=== PATIENT | male | born 1960 | race Two or more races ===

== ENCOUNTER 2022-09-06 12:56 | Inpatient (IN) | payer OTHER ==
[~2022-09-06] VITALS: Ht 182.9 cm; Wt 123.8 kg
--- NOTE | 2022-09-06 13:09 | NUR ---
BIBRA60 FOUND UNRESPONSIVE ON SEEN AT [facility]. BG ON SCENE WAS 51, O2 SAT AT 81% ROOM AIR. D10 GIVEN AND NRB APPLIED AT 15 LITERS. BG 260 AND O2 SAT 98% ON ARRIVAL. PT PLACED IN BED AND CONNECTED TO MONITOR. AWAITING MD ORDERS.
--- NOTE | 2022-09-06 13:10 | NUR ---
ESTABLISHED IV 18G LEFT WRIST. BLOOD DRAWN AND SENT TO LAB
--- NOTE | 2022-09-06 13:10 | NUR ---
TECH AT BEDSIDE FOR EKG
--- NOTE | 2022-09-06 13:29 | NUR ---
PHLEB AT BEDSIDE FOR BLOOD DRAW
[2022-09-06 13:41] LABS: BASOPHILS # (AUTO) 0.1 K/uL (0.0-0.2); BASOPHILS % (AUTO) 0.9 % (0.0-2.0); EOSINOPHILS % (AUTO) 2.2 % (0.0-6.0); HEMATOCRIT 28 % (39-51); LYMPHOCYTES # (AUTO) 1.6 K/uL (0.8-4.8); LYMPHOCYTES % (AUTO) 13.5 % (20.0-44.0); MEAN CORPUSCULAR HGB CONC 32 g/dl (31.0-36.0); MEAN CORPUSCULAR VOLUME 87 fL (80-96); MONOCYTES % (AUTO) 7.9 % (2.0-12.0); NEUTROPHILS # (AUTO) 9.2 K/uL (1.8-8.9); NEUTROPHILS % (AUTO) 75.5 % (43.0-81.0); PLATELET COUNT (AUTO) 421 K/uL (150-450); RED BLOOD CELL COUNT(AUTO) 3.26 MIL/uL (4.5-6.0); WHITE BLOOD COUNT (AUTO) 12.2 K/uL (4.3-11.0)
[2022-09-06 13:51] LABS: ALBUMIN 1.8 g/dL (3.4-5.0); CALCIUM, SERUM 8.8 mg/dL (8.5-10.1); CARBON DIOXIDE 23 mmol/L (21-32); CHLORIDE 105 mmol/L (98-107); CREATININE 1.5 mg/dL (0.6-1.3); GLUCOSE 87 mg/dL (74-106); POTASSIUM 4.5 mmol/L (3.5-5.1); SODIUM SERUM 137 mmol/L (136-145); UREA NITROGEN, BLOOD 51 mg/dL (7-18)
[2022-09-06 14:05] LABS: ALANINE AMINOTRANSFERASE 22 U/L (12-78); ALKALINE PHOSPHATASE 66 U/L (46-116); ASPARTATE AMINOTRANSFERASE 11 U/L (15-37); BILIRUBIN,DIRECT 0.1 mg/dL (0.0-0.2); BILIRUBIN,TOTAL 0.2 mg/dL (0.2-1.0); TOTAL PROTEIN, SERUM 7.7 g/dL (6.4-8.2)
--- NOTE | 2022-09-06 14:12 | NUR ---
DR MEJIA AT BEDSIDE FOR EVAL
--- NOTE | 2022-09-06 15:32 | NUR ---
COVID SWAB COLLECTED AND SENT TO LAB
[2022-09-06] MEDS ORDERED: INSU100V39 SQ ×2 (16:11)
[2022-09-06] MEDS ORDERED: LAMO25TA10 PO (16:11)
[2022-09-06] MEDS ORDERED: MULT-188 PO (16:11)
[2022-09-06] MEDS ORDERED: POLY17PO4 PO (16:11)
[2022-09-06] MEDS ORDERED: AMLO5TAB4 PO (16:11)
[2022-09-06] MEDS ORDERED: CARV25TA PO (16:11)
[2022-09-06] MEDS ORDERED: SERT100T PO (16:11)
[2022-09-06] MEDS ORDERED: ACET325T53 PO (16:11)
[2022-09-06] MEDS ORDERED: INSU100V7 SQ (16:11)
[2022-09-06] MEDS ORDERED: GABA-532 PO (16:11)
[2022-09-06] MEDS ORDERED: HYDR-3980 PO (16:11)
[2022-09-06] MEDS ORDERED: FOLI0.8C PO (16:11)
[2022-09-06] MEDS ORDERED: ASPI-1169 PO (16:11)
[2022-09-06] MEDS ORDERED: SENN-261 PO (16:11)
[2022-09-06] MEDS ORDERED: TAMS-12 PO (16:11)
[2022-09-06] MEDS ORDERED: ATOR80TA PO (16:11)
--- NOTE | 2022-09-06 17:56 | NUR ---
GOT BED ASSIGNMENT ROOM 105 ADMITTING INFORMED.
[2022-09-06] MEDS ORDERED: Z GUARD REMEDY 4 OZ OINT TP PRN (18:00)
[2022-09-06] MEDS ORDERED: ONDANSETRON HCL/PF 4 MG/2 ML VIAL IVP PRN (18:00)
[2022-09-06] MEDS ORDERED: ACETAMINOPHEN 325 MG TABLET PO PRN (18:00)
[2022-09-06] MEDS ORDERED: IV D5/0.45 NACL 1,000 ML IV PRN (18:00)
--- NOTE | 2022-09-06 18:09 | NUR ---
REPORT GIVEN TO YEE FAM.
--- NOTE | 2022-09-06 19:05 | NUR ---
RN NOTE RECEIVED PT FROM ER VIA GURNEY ACCOMPANIED BY 2 ER STAFF AND TRANSFERRED TO BED VIA 2-3 PERSON ASSIST. PT IS A/O4 ON ROOM AIR WITH RESPIRATIONS EVEN AND UNLABORED. COMPREHENSIVE PHYSICAL ASSESSMENT AND PATIENT CARE DONE. CALL LIGHT WITHIN REACH, SAFETY MEASURES DONE WILL CONTINUE MONITOR AND ASSESS THROUGHOUT THE SHIFT. WILL CARRY OUT MD ORDERS ACCORDINGLY. WEAVE ROOM SUPERVISOR MADE AWARE.
--- NOTE | 2022-09-06 19:06 | NUR ---
moved patient to assigned inpatient room safely per acls protocol
[2022-09-06 19:10] VITALS: BP 132/67
--- NOTE | 2022-09-06 19:45 | NUR ---
RN NOTE PT COMPLAINED OF SLIGHT SOB, ADMINISTERED 2L OF O2 VIA NC, TOLERATES WELL 02 SAT OF >95%.
[2022-09-06] MEDS: ENOXAPARIN SODIUM 40 MG/0.4 ML DISP.SYRIN SQ SCH (20:23)
[2022-09-06] MEDS: SENNOSIDES 8.6 MG TABLET PO SCH (21:10)
[2022-09-06] MEDS: HYDROCODONE/APAP 10/325MG TABLET PO PRN (21:10)
[2022-09-06] MEDS: ATORVASTATIN 40 MG TABLET PO SCH (21:10)
[2022-09-07] VITALS: BP 122/65
[2022-09-07 04:00] VITALS: BP 126/63
--- NOTE | 2022-09-07 04:00 | NUR ---
RN NOTES PATIENT REMAINED TO BE IN NO SIGNS OF ACUTE RESPIRATORY DISTRESS , SAFE ENVIRONMENT MAINTAINED FOR PT. AM PATIENT CARE ASSISTANCE RENDERED. WILL CONTINUE TO MONITOR AND REASSESS FOR ANY CHANGES THROUGHOUT THE SHIFT.
[2022-09-07] MEDS ORDERED: DEXTROSE 50%-WATER 50 ML DISP.SYRIN IV PRN (05:00)
--- NOTE | 2022-09-07 07:02 | NUR ---
RN CLOSING NOTE: PATIENT REMAINS IN ROOM IN NO SIGNS OF RESPIRATORY DISTRESS, PATIENT STILL ON 2L OF O2 VIA NC;TOLERATING WELL SATURATING @ >95% SP02. SAFETY MEASURES IMPLEMENTED, BED IN LOWEST POSITION, LOCKED, SIDE RAILS UP, CALL LIGHT WITHIN REACH. ALL NEEDS AND ORDERS ADDRESSED DURING THE SHIFT. IV ACCESS MAINTAINED INTACT, SECURED AND FLUSHING WELL. IV FLUIDS STILL RUNNING PER ORDER. ALL DUE MEDS GIVEN ORDERED & SCHEDULED ; PATIENT TOLERATED WELL. PATIENT KEPT CLEAN AND COMFORTABLE WITHIN THE SHIFT. PATIENT ENDORSED TO INCOMING SHIFT RN WITH STABLE VITAL SIGN AND FOR CONTINUITY OF CARE.
[2022-09-07] MEDS: BLOOD SUGAR DIAGNOSTIC 1 EACH STRIP IN SCH ×4 (07:13→21:46)
[2022-09-07] MEDS: INSULIN REGULAR, HUMAN 100 UNIT/ML 3 ML VIAL SQ PRN ×4 (07:26→22:04)
[2022-09-07 08:00] VITALS: BP 140/59
[2022-09-07] MEDS: FOLIC ACID 1 MG TABLET PO SCH (08:15)
[2022-09-07] MEDS: SERTRALINE HCL 50 MG TABLET PO SCH (08:15)
[2022-09-07] MEDS: ASPIRIN 81 MG TAB.CHEW PO SCH (08:15)
[2022-09-07] MEDS: MULTIVIT W/MINERALS 1 TAB TABLET PO SCH (08:15)
[2022-09-07] MEDS: LamoTRIgine 25 MG TABLET PO SCH ×2 (08:16→16:38)
[2022-09-07] MEDS: TAMSULOSIN 0.4 MG CAP.SR.24H PO SCH (08:16)
[2022-09-07 08:17] LABS: BASOPHILS # (AUTO) 0.1 K/uL (0.0-0.2); BASOPHILS % (AUTO) 0.6 % (0.0-2.0); EOSINOPHILS % (AUTO) 0.6 % (0.0-6.0); HEMATOCRIT 25 % (39-51); LYMPHOCYTES # (AUTO) 2.2 K/uL (0.8-4.8); LYMPHOCYTES % (AUTO) 14.7 % (20.0-44.0); MEAN CORPUSCULAR HGB CONC 32 g/dl (31.0-36.0); MEAN CORPUSCULAR VOLUME 88 fL (80-96); MONOCYTES # (AUTO) 1.1 K/uL (0.1-1.30); MONOCYTES % (AUTO) 6.9 % (2.0-12.0); NEUTROPHILS # (AUTO) 11.8 K/uL (1.8-8.9); NEUTROPHILS % (AUTO) 77.2 % (43.0-81.0); PLATELET COUNT (AUTO) 396 K/uL (150-450); RED BLOOD CELL COUNT(AUTO) 2.85 MIL/uL (4.5-6.0); WHITE BLOOD COUNT (AUTO) 15.3 K/uL (4.3-11.0)
[2022-09-07] MEDS: AMLODIPINE BESYLATE 5 MG TABLET PO SCH (08:17)
[2022-09-07] MEDS: CARVEDILOL 12.5 MG TABLET PO SCH ×2 (08:18→16:39)
[2022-09-07] MEDS: GABAPENTIN 100 MG CAPSULE PO SCH ×3 (08:19→16:37)
[2022-09-07 08:35] LABS: ALBUMIN 1.6 g/dL (3.4-5.0); BILIRUBIN,TOTAL 0.3 mg/dL (0.2-1.0); CALCIUM, SERUM 8.1 mg/dL (8.5-10.1); CREATININE 1.6 mg/dL (0.6-1.3); PHOSPHORUS 3.8 mg/dL (2.5-4.9); POTASSIUM 4.4 mmol/L (3.5-5.1); TOTAL PROTEIN, SERUM 6.8 g/dL (6.4-8.2)
--- NOTE | 2022-09-07 08:57 | NUR ---
PATIENT IV'S NOT PATENT,REMOVED TRIED 3X PERIPHERAL UNSUCCESSFUL ,OBTAIN MIDLINE,BS 402 MD AWARE,HAD INSULIN CPVERAGE GIVEN ORDERED.
[2022-09-07] MEDS: LEVOFLOXACIN 500 MG /D5W 100ML 500 MG in PREMIX 1 EA IV SCH (10:04)
[2022-09-07] MEDS: HYDROCODONE/APAP 10/325MG TABLET PO PRN ×2 (10:24→22:24)
--- NOTE | 2022-09-07 10:25 | NUR ---
PATIENT C/O OF RIGHT FOOT PAIN 8/10, NORCO 10MG GIVEN PO. REASSESS PAIN AFTER AN HOUR.
--- NOTE | 2022-09-07 11:25 | NUR ---
PATIENT HAS NO C/O PAIN AFTER NORCO WAS GIVEN.
[2022-09-07 12:00] VITALS: BP 116/60
--- NOTE | 2022-09-07 15:31 | NUR ---
URINE LAB SAMPLE COLLECTED, INFORMED LAB DEPARTMENT.
[2022-09-07 16:00] VITALS: BP 121/56
--- NOTE | 2022-09-07 16:30 | NUR ---
DOUG FROM [facility] CALLED THAT PATIENT IS POSITIVE OF MRSA.
[2022-09-07] MEDS: ENOXAPARIN SODIUM 40 MG/0.4 ML DISP.SYRIN SQ SCH (17:05)
--- NOTE | 2022-09-07 18:27 | NUR ---
PATIENT IS AWAKE, ALERT, ORIENTEDX3, NO COMPLAINT OF PAIN, NO SIGNS OF IN DISTRESS, VITAL SIGNS ARE STABLE, UNLABORED BREATHING ON ROOM AIR, LEFT WRIST PERIPHERAL IV LINE ,SALINE LOCK, CONDOM CATHETER IN PLACE AND DRAINING WELL, SAFETY MEASURES IN PLACE, BED IN LOW POSITION, SIDE RAILS UP, CALL LIGHT WITHIN REACH.
[2022-09-07 18:46] LABS: CREATININE, URINE 53.9 MG/DL (30.0-125.0)
[2022-09-07 18:55] LABS: BILIRUBIN,URINE NEGATIVE (NEGATIVE); COLOR,URINE YELLOW (YELLOW); LEUKOCYTE ESTERASE ,URINE NEGATIVE (NEGATIVE); NITRITE, URINE NEGATIVE (NEGATIVE); PROTEIN,URINE 3+ mg/dl (NEGATIVE); UGLUCOSE 2+ mg/dL (NEGATIVE); UROBILINOGEN,URINE 0.2 EU/dL (0.2)
--- NOTE | 2022-09-07 19:00 | NUR ---
ICING AND GLAZE MAKER OPENING NOTE PATIENT IS LYING IN BED WATCHING TV. HE IS ALERT AND ORIENTED. AO X 4. HE IS ON 2 LPM OXYGEN VIA NC, TOLERATED WELL. NO S/S OF SOB OR DISTRESS. IV ACCESS IS AT HIS RIGHT UA, ML, #18G. SL. FLUSHED WITH 10 CC ML OF NS. IV IS PATENT AND INTACT. PATIENT DENIES OF HAVING PAIN AT THIS MOMENT. 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 SAFETY MEASURES ARE IN PLACE: BED IN LOWEST AND LOCKED POSITION; SIDE RAILS UP X 2; CALL LIGHT AND TABLE ARE WITHIN REACH. WILL CONTINUE MONITORING THE PATIENT AND PROVIDE THE CARE PATIENT NEEDS.
[2022-09-07 19:16] LABS: WBC,URINE 0-2 /HPF (0-3)
[2022-09-07 19:17] LABS: BACTERIA,URINE 1+ /HPF (None Seen); MUCUS,URINE Few /LPF (None Seen)
[2022-09-07 20:00] VITALS: BP 129/67
[2022-09-07] MEDS: IV NS 0.9% 1,000 ML IV PRN (20:36)
[2022-09-07] MEDS: MUPIROCIN OINT 2% 22 GM TUBE NS SCH (21:41)
[2022-09-07] MEDS: SENNOSIDES 8.6 MG TABLET PO SCH (21:42)
[2022-09-07] MEDS: ATORVASTATIN 40 MG TABLET PO SCH (21:42)
[2022-09-07] MEDS ORDERED: INSULIN GLARGINE, 100 UNIT/ML CARTRIDGE SQ SCH (22:00)
--- NOTE | 2022-09-07 22:25 | NUR ---
REFRACTORY PRODUCTS SUPERVISOR NOTE PATIENT STATES HE IS HAVING PAIN ON HIS LOWER LEGS AND FOOT. 02/10. PRN MEDICATION NORCO WAS ADMINISTERED TO THE PATIENT PER MD ORDER.
[2022-09-08 00:25] VITALS: BP 129/82
[2022-09-08 04:00] VITALS: BP 136/71
[2022-09-08] MEDS: BLOOD SUGAR DIAGNOSTIC 1 EACH STRIP IN SCH ×4 (06:30→21:42)
[2022-09-08] MEDS: INSULIN REGULAR, HUMAN 100 UNIT/ML 3 ML VIAL SQ PRN ×4 (06:34→21:44)
--- NOTE | 2022-09-08 07:20 | NUR ---
MECHANICAL ENGINEERING ADVISOR CLOSING NOTE PATIENT IS SLEEPING IN BED; EASILY BEING AROUSED. HE IS ALERT AND ORIENTED. AO X 4. HE IS ON 2 LPM OXYGEN VIA NC, TOLERATED WELL. NO S/S OF SOB OR DISTRESS. IV ACCESS IS AT HIS RIGHT UA, ML, and #18G, RUNNING NS @70 ML/HR. IV IS PATENT AND INTACT. PATIENT DENIES OF HAVING PAIN AT THIS MOMENT. 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 SAFETY MEASURES ARE IN PLACE: BED IN LOWEST AND LOCKED POSITION; SIDE RAILS UP X 2; CALL LIGHT AND TABLE ARE WITHIN REACH. WILL ENDORSE NEXT SHIFT NURSE FOR CONTINUING PATIENT CARE.
--- NOTE | 2022-09-08 07:39 | NUR ---
RN Opening Note Patient sleeping but easily aroused, AOx4, able to express his own concerns. No signs of distress or discomfort. Will continue to monitor throughout shift. All safety precautions taken, call light and table within reach, bed at lowest position.
[2022-09-08 08:00] VITALS: BP 132/75
[2022-09-08] MEDS: MULTIVIT W/MINERALS 1 TAB TABLET PO SCH (08:08)
[2022-09-08] MEDS: CARVEDILOL 12.5 MG TABLET PO SCH ×2 (08:08→16:46)
[2022-09-08] MEDS: SERTRALINE HCL 50 MG TABLET PO SCH (08:08)
[2022-09-08] MEDS: FOLIC ACID 1 MG TABLET PO SCH (08:09)
[2022-09-08] MEDS: LamoTRIgine 25 MG TABLET PO SCH ×2 (08:09→16:44)
[2022-09-08] MEDS: GABAPENTIN 100 MG CAPSULE PO SCH ×3 (08:09→16:44)
[2022-09-08] MEDS: TAMSULOSIN 0.4 MG CAP.SR.24H PO SCH (08:09)
[2022-09-08] MEDS: ASPIRIN 81 MG TAB.CHEW PO SCH (08:09)
[2022-09-08] MEDS: AMLODIPINE BESYLATE 5 MG TABLET PO SCH (08:09)
[2022-09-08 09:31] LABS: BASOPHILS % (AUTO) 0.4 % (0.0-2.0); EOSINOPHILS % (AUTO) 3.6 % (0.0-6.0); HEMATOCRIT 23 % (39-51); HEMOGLOBIN 7.3 g/dL (13.5-17.5); LYMPHOCYTES # (AUTO) 1.9 K/uL (0.8-4.8); LYMPHOCYTES % (AUTO) 16.6 % (20.0-44.0); MEAN CORPUSCULAR HGB CONC 32 g/dl (31.0-36.0); MEAN CORPUSCULAR VOLUME 88 fL (80-96); MONOCYTES # (AUTO) 1.1 K/uL (0.1-1.30); MONOCYTES % (AUTO) 9.6 % (2.0-12.0); NEUTROPHILS # (AUTO) 7.9 K/uL (1.8-8.9); NEUTROPHILS % (AUTO) 69.8 % (43.0-81.0); PLATELET COUNT (AUTO) 341 K/uL (150-450); RED BLOOD CELL COUNT(AUTO) 2.66 MIL/uL (4.5-6.0); WHITE BLOOD COUNT (AUTO) 11.3 K/uL (4.3-11.0)
[2022-09-08] MEDS: MUPIROCIN OINT 2% 22 GM TUBE NS SCH ×2 (09:35→21:25)
[2022-09-08 09:48] LABS: CREATININE 1.8 mg/dL (0.6-1.3); POTASSIUM 4.2 mmol/L (3.5-5.1)
[2022-09-08] MEDS: LEVOFLOXACIN 500 MG /D5W 100ML 500 MG in PREMIX 1 EA IV SCH (10:03)
[2022-09-08] MEDS: IV NS 0.9% 1,000 ML IV PRN (10:04)
[2022-09-08] MEDS: CLINDAMYCIN 600 MG in IV D5W 50 ML IV SCH ×2 (11:45→21:24)
[2022-09-08 12:00] VITALS: BP 130/70
[2022-09-08 16:00] VITALS: BP 129/68
[2022-09-08] MEDS: HYDROCODONE/APAP 10/325MG TABLET PO PRN ×2 (16:57→22:48)
--- NOTE | 2022-09-08 17:15 | NUR ---
Hold Lovenox Per MD, hold Lovenox. Hemoglobin 7.3
[2022-09-08] MEDS: ENOXAPARIN SODIUM 40 MG/0.4 ML DISP.SYRIN SQ SCH (17:38)
--- NOTE | 2022-09-08 18:20 | NUR ---
RN Closing Note PAtient AOx4 able to express his concerns. Patient states no discomfort, no signs of distress noted. Patient safe throughout shift. cement worker consult requested, pt states he has not been able to communicate with family. All safety precautions taken, call light and table within reach, bed at lowest position.
[2022-09-08 20:00] VITALS: BP 122/70
--- NOTE | 2022-09-08 20:00 | NUR ---
SPORTS MARKETING COORDINATOR NOTE PT IN BED A/O X 4 NO SOB, NO DISTRESS OR DISCOMFORT NOTED. DENIES PAIN AT THIS TIME. ON O2 2L VIA N/C O2 SAT 98%. ON TELE SR HR 85. PT IS USING CONDOM CATH DRAINING YELLOWISH COLOR URINE. BOB WITH MIDLAINE INFUSING NS @ 70 ML/HR, NO S/S OF INFILTRATION NOTED. ALL NEEDS ATTENDED. SIDE RAILS UP X 2 AND CALL LIGHT WITHIN REACH. VSS. CONTINUE TO MONITOR HIM.
[2022-09-08] MEDS: ATORVASTATIN 40 MG TABLET PO SCH (21:24)
[2022-09-08] MEDS: SENNOSIDES 8.6 MG TABLET PO SCH (21:24)
[2022-09-08] MEDS: DOXYCYCLINE HYCLATE (100 MG) 100 MG TABLET PO SCH (21:42)
[2022-09-08] MEDS: INSULIN GLARGINE, 100 UNIT/ML CARTRIDGE SQ SCH (21:45)
[2022-09-09] VITALS: BP 131/68
[2022-09-09] MEDS: IV NS 0.9% 1,000 ML IV PRN (03:27)
[2022-09-09 04:00] VITALS: BP 128/60
[2022-09-09] MEDS: CLINDAMYCIN 600 MG in IV D5W 50 ML IV SCH ×3 (05:41→21:57)
--- NOTE | 2022-09-09 07:30 | NUR ---
PT RECEIVED RESTING COMFORTABLY IN BED. NO S/S OR C/O PAIN OR DISTRESS NOTED. SIDE RAILS UP X2, CALL LIGHT LEFT WITHIN REACH. WILL CONTINUE PLAN OF CARE.
[2022-09-09 08:00] VITALS: BP 123/73
[2022-09-09] MEDS: ASPIRIN 81 MG TAB.CHEW PO SCH (08:06)
[2022-09-09] MEDS: GABAPENTIN 100 MG CAPSULE PO SCH ×3 (08:06→17:55)
[2022-09-09] MEDS: TAMSULOSIN 0.4 MG CAP.SR.24H PO SCH (08:06)
[2022-09-09] MEDS: LamoTRIgine 25 MG TABLET PO SCH ×2 (08:06→17:54)
[2022-09-09] MEDS: MULTIVIT W/MINERALS 1 TAB TABLET PO SCH (08:06)
[2022-09-09] MEDS: SERTRALINE HCL 50 MG TABLET PO SCH (08:07)
[2022-09-09] MEDS: DOXYCYCLINE HYCLATE (100 MG) 100 MG TABLET PO SCH (08:07)
[2022-09-09] MEDS: FOLIC ACID 1 MG TABLET PO SCH (08:07)
[2022-09-09] MEDS: CARVEDILOL 12.5 MG TABLET PO SCH ×2 (08:07→17:55)
[2022-09-09] MEDS: AMLODIPINE BESYLATE 5 MG TABLET PO SCH (08:08)
[2022-09-09] MEDS: INSULIN REGULAR, HUMAN 100 UNIT/ML 3 ML VIAL SQ PRN ×4 (08:09→22:55)
[2022-09-09] MEDS: BLOOD SUGAR DIAGNOSTIC 1 EACH STRIP IN SCH ×4 (08:19→21:58)
[2022-09-09] MEDS: MUPIROCIN OINT 2% 22 GM TUBE NS SCH ×2 (08:19→21:58)
[2022-09-09] MEDS: HYDROCODONE/APAP 10/325MG TABLET PO PRN ×2 (08:29→16:46)
[2022-09-09] MEDS: LEVOFLOXACIN 500 MG /D5W 100ML 500 MG in PREMIX 1 EA IV SCH (09:32)
[2022-09-09 10:14] LABS: CALCIUM, SERUM 8.1 mg/dL (8.5-10.1); CREATININE 1.8 mg/dL (0.6-1.3); POTASSIUM 4.3 mmol/L (3.5-5.1)
[2022-09-09 10:32] LABS: BASOPHILS % (AUTO) 0.5 % (0.0-2.0); EOSINOPHILS % (AUTO) 4.7 % (0.0-6.0); HEMATOCRIT 23 % (39-51); HEMOGLOBIN 7.4 g/dL (13.5-17.5); LYMPHOCYTES # (AUTO) 1.6 K/uL (0.8-4.8); LYMPHOCYTES % (AUTO) 15.8 % (20.0-44.0); MEAN CORPUSCULAR HGB CONC 32 g/dl (31.0-36.0); MEAN CORPUSCULAR VOLUME 90 fL (80-96); MONOCYTES # (AUTO) 1.1 K/uL (0.1-1.30); MONOCYTES % (AUTO) 11.1 % (2.0-12.0); NEUTROPHILS # (AUTO) 6.9 K/uL (1.8-8.9); NEUTROPHILS % (AUTO) 67.9 % (43.0-81.0); PLATELET COUNT (AUTO) 340 K/uL (150-450); RED BLOOD CELL COUNT(AUTO) 2.52 MIL/uL (4.5-6.0); WHITE BLOOD COUNT (AUTO) 10.1 K/uL (4.3-11.0)
[2022-09-09] MEDS ORDERED: POLYETHYLENE GLYCOL 3350 17 GM POWD.PACK PO PRN (11:00)
[2022-09-09 12:00] VITALS: BP 123/62
[2022-09-09 16:00] VITALS: BP 136/52
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
[2022-09-09 17:51] LABS: BILIRUBIN,URINE NEGATIVE (NEGATIVE); COLOR,URINE YELLOW (YELLOW); LEUKOCYTE ESTERASE ,URINE NEGATIVE (NEGATIVE); NITRITE, URINE NEGATIVE (NEGATIVE); PROTEIN,URINE 2+ mg/dl (NEGATIVE); UGLUCOSE 1+ mg/dL (NEGATIVE); UROBILINOGEN,URINE 0.2 EU/dL (0.2)
[2022-09-09] MEDS: ENOXAPARIN SODIUM 40 MG/0.4 ML DISP.SYRIN SQ SCH (18:00)
[2022-09-09 18:17] LABS: WBC,URINE 0-2 /HPF (0-3)
[2022-09-09 18:18] LABS: BACTERIA,URINE RARE /HPF (None Seen)
--- NOTE | 2022-09-09 18:51 | NUR ---
CHANGE OF SHIFT REPORT PT RESTING COMFORTABLY IN BED. NO S/S OR C/O PAIN OR DISTRESS NOTED. SIDERAILS UP X2, CALL LIGHT LEFT WITHIN REACH. PT KEPT CLEAN, DRY, AND COMFORTABLE. NO SIGNIFICANT CHANGES SINCE PREVIOUS SHIFT. WILL GIVE REPORT TO RONAK FRAIRE.
[2022-09-09 19:29] LABS: CREATININE, URINE 37.1 MG/DL (30.0-125.0); URINE TOTAL PROTEIN 254.9 mg/dL (0-11.9)
--- NOTE | 2022-09-09 19:40 | NUR ---
CEMENTER HAND OPENING NOTE RECEIVED PATIENT IN BED SLEEPING. PT ALERT AND ORIENTED X 4. ON 2 LPM OXYGEN VIA NC. NO S/S OF SOB OR DISTRESS. IV ACCESS TO RIGHT UA, ML, #18G. SL, PATENT AND INTACT. PATIENT DENIES PAIN, AND DISCOMFORT AT THIS MOMENT. ON TELE MONITOR READING SR WITH HR IN 80s. SAFETY MEASURES ARE IN PLACE: BED IN LOWEST AND LOCKED POSITION; SIDE RAILS UP X 2; CALL LIGHT AND TABLE WITHIN REACH. WILL CONTINUE MONITORING THE PATIENT AND PROVIDE THE CARE PATIENT NEEDS.
[2022-09-09 20:00] VITALS: BP 130/66
[2022-09-09] MEDS: ATORVASTATIN 40 MG TABLET PO SCH (21:59)
[2022-09-09] MEDS: SENNOSIDES 8.6 MG TABLET PO SCH (21:59)
[2022-09-09] MEDS: INSULIN GLARGINE, 100 UNIT/ML CARTRIDGE SQ SCH (23:01)
[2022-09-10] VITALS: BP 130/70
[2022-09-10 04:00] VITALS: BP 130/70
[2022-09-10] MEDS: CLINDAMYCIN 600 MG in IV D5W 50 ML IV SCH ×3 (05:52→21:09)
--- NOTE | 2022-09-10 06:55 | NUR ---
STUNTMAN CLOSING NOTE PT RESTING COMFORTABLY IN BED. NO S/S OR C/O PAIN OR DISTRESS NOTED. SAFETY MEASURES IN PLACE: SIDE RAILS UP X2, CALL LIGHT WITHIN REACH, BED IN LOW POSITION. PT KEPT CLEAN, DRY, AND COMFORTABLE. WILL ENDORSE TO AM SHIFT NURSE FOR LUL..
--- NOTE | 2022-09-10 07:49 | NUR ---
AIDS COUNSELOR NOTE PATIENT IN BED ,ALERT ORIENTED , ON 2L NC, NO SOB NOTED AT THIS TIME, ON TELE MONITOR SR HR 78 , RT UPPER ARM MID LINE IN PLACE , ON IVF ORDERED, WITH CONDOM CATH TOLERATED , BED IN LOWEST AND LOCKED POSITION , CALL LIGHT WITHIN REACH , WILL CONT TO MONITOR CLOSELY
[2022-09-10 08:00] VITALS: BP 115/64
[2022-09-10] MEDS: GABAPENTIN 100 MG CAPSULE PO SCH ×3 (08:38→16:24)
[2022-09-10] MEDS: ASPIRIN 81 MG TAB.CHEW PO SCH (08:38)
[2022-09-10] MEDS: AMLODIPINE BESYLATE 5 MG TABLET PO SCH (08:38)
[2022-09-10] MEDS: CARVEDILOL 12.5 MG TABLET PO SCH ×2 (08:39→16:25)
[2022-09-10] MEDS: SERTRALINE HCL 50 MG TABLET PO SCH (08:40)
[2022-09-10] MEDS: LamoTRIgine 25 MG TABLET PO SCH ×2 (08:40→16:25)
[2022-09-10] MEDS: MULTIVIT W/MINERALS 1 TAB TABLET PO SCH (08:41)
[2022-09-10] MEDS: TAMSULOSIN 0.4 MG CAP.SR.24H PO SCH (08:41)
[2022-09-10] MEDS: FOLIC ACID 1 MG TABLET PO SCH (08:41)
[2022-09-10] MEDS: INSULIN REGULAR, HUMAN 100 UNIT/ML 3 ML VIAL SQ PRN ×4 (08:47→21:48)
[2022-09-10] MEDS: BLOOD SUGAR DIAGNOSTIC 1 EACH STRIP IN SCH ×4 (08:48→21:37)
[2022-09-10 08:49] LABS: IRON, SERUM 19 ug/dl (50-175); TOTAL IRON BINDING CAPACITY 134 ug/dl (250-450)
[2022-09-10] MEDS: MUPIROCIN OINT 2% 22 GM TUBE NS SCH ×2 (08:49→21:15)
[2022-09-10 09:05] LABS: FERRITIN 57 ng/mL (8-388)
[2022-09-10] MEDS: LEVOFLOXACIN 500 MG /D5W 100ML 500 MG in PREMIX 1 EA IV SCH (10:13)
[2022-09-10 12:00] VITALS: BP 115/64
--- NOTE | 2022-09-10 12:30 | NUR ---
ms rn note rounds made, all needs attended ,not in distress
--- NOTE | 2022-09-10 14:34 | NUR ---
telecommunication equipment repairer note c\o dry eyes per dr hao Ragsdale ordered artificial eyes drops , order carried ours per dr hao Ragsdale ok to place cpap machine ,called rt Addendum: 09/10/22 at 1442 by RAMIREZ BORDEN RN Notified Doctor Hao Ragsdale hg 7.4 no new order given
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
--- NOTE | 2022-09-10 14:58 | NUR ---
rn note report given to christian noriega
--- NOTE | 2022-09-10 15:00 | NUR ---
RN NOTE RECEIVED REPORT FROM RAMIREZ, WILL CONTINUE THE CARE SINCE NOW FOR THE REST OF THE SHIFT.
[2022-09-10 16:00] VITALS: BP 121/63
[2022-09-10] MEDS: HYDROCODONE/APAP 10/325MG TABLET PO PRN (16:32)
[2022-09-10] MEDS: ENOXAPARIN SODIUM 40 MG/0.4 ML DISP.SYRIN SQ SCH (18:14)
--- NOTE | 2022-09-10 18:58 | NUR ---
RN CLOSING NOTE PATIENT RESTING IN BED. NO S/S OR C/O PAIN OR DISTRESS NOTED. SAFETY MEASURES IN PLACE: SIDE RAILS UP X2, CALL LIGHT WITHIN REACH, BED IN LOW POSITION. CONDOM CATHETER DRAINING YELLOW CLEAR URINE. PT KEPT CLEAN, DRY, AND COMFORTABLE. WILL ENDORSE TO PM SHIFT NURSE FOR LUL..
--- NOTE | 2022-09-10 19:30 | NUR ---
MS RN OPENING NOTE RECEIVED PATIENT IN BED; AWAKE, ALERT AND ORIENTED X 4. ON O2 INHALATION @ 2 LPM VIA NASAL CANNULA; TOLERATING WELL. NOT IN ANY FORM OF RESPIRATORY OR CARDIAC DISTRESS. DENIES ANY PAIN OR DISCOMFORT AT THIS TIME. WITH IV ACCESS ON RIGHT UA MIDLINE 18g; INTACT, PATENT AND SALINE LOCKED. ABLE TO MAKE NEEDS KNOWN. SAFETY MEASURES IMPLEMENTED: CALL LIGHT AND TABLE WITHIN REACH, SIDE RAILS UP X 2, BED IN LOWEST LOCKED POSITION. WILL CONTINUE PLAN OF CARE.
[2022-09-10 20:00] VITALS: BP 121/73
[2022-09-10] MEDS: ATORVASTATIN 40 MG TABLET PO SCH (21:08)
[2022-09-10] MEDS: SENNOSIDES 8.6 MG TABLET PO SCH (21:08)
[2022-09-10] MEDS: POLYVINYL ALCOHOL 15 ML BOTTLE EACHEYE PRN (21:15)
[2022-09-10] MEDS: INSULIN GLARGINE, 100 UNIT/ML CARTRIDGE SQ SCH (21:41)
[2022-09-11 04:00] VITALS: BP 144/74
[2022-09-11] MEDS: CLINDAMYCIN 600 MG in IV D5W 50 ML IV SCH ×3 (04:34→21:20)
[2022-09-11 05:59] VITALS: BP 144/74
[2022-09-11 06:55] LABS: BASOPHILS # (AUTO) 0.1 K/uL (0.0-0.2); BASOPHILS % (AUTO) 0.6 % (0.0-2.0); HEMATOCRIT 23 % (39-51); HEMOGLOBIN 7.5 g/dL (13.5-17.5); LYMPHOCYTES % (AUTO) 24.5 % (20.0-44.0); MEAN CORPUSCULAR HGB CONC 32 g/dl (31.0-36.0); MEAN CORPUSCULAR VOLUME 87 fL (80-96); MONOCYTES # (AUTO) 0.9 K/uL (0.1-1.30); MONOCYTES % (AUTO) 11.6 % (2.0-12.0); NEUTROPHILS # (AUTO) 4.7 K/uL (1.8-8.9); NEUTROPHILS % (AUTO) 58.3 % (43.0-81.0); PLATELET COUNT (AUTO) 377 K/uL (150-450); RED BLOOD CELL COUNT(AUTO) 2.69 MIL/uL (4.5-6.0)
[2022-09-11 07:03] LABS: CALCIUM, SERUM 8.3 mg/dL (8.5-10.1); CREATININE 1.8 mg/dL (0.6-1.3); PHOSPHORUS 4.5 mg/dL (2.5-4.9); POTASSIUM 4.8 mmol/L (3.5-5.1)
--- NOTE | 2022-09-11 07:13 | NUR ---
MS RN CLOSING NOTE PATIENT IN BED; AWAKE, A/O X 4. STILL ON O2 INHALATION @ 2 LPM VIA NASAL CANNULA; TOLERATING WELL. NOT IN ANY FORM OF RESPIRATORY OR CARDIAC DISTRESS. DENIES ANY PAIN OR DISCOMFORT AT THIS TIME. WITH IV ACCESS RIGHT UA, MIDLINE 18G; INTACT, PATENT AND SALINE LOCKED. ALL DUE MEDS GIVEN ORDERED. SAFETY MEASURES MAINTAINED: CALL LIGHT AND TABLE WITHIN REACH, SIDE RAILS UP X 2, BED IN LOWEST LOCKED POSITION. ENDORSED TO MORNING SHIFT FOR LUL.
[2022-09-11] MEDS: BLOOD SUGAR DIAGNOSTIC 1 EACH STRIP IN SCH ×4 (07:47→21:39)
[2022-09-11] MEDS: INSULIN REGULAR, HUMAN 100 UNIT/ML 3 ML VIAL SQ PRN ×4 (07:50→21:42)
[2022-09-11] MEDS: FOLIC ACID 1 MG TABLET PO SCH (08:28)
[2022-09-11] MEDS: CARVEDILOL 12.5 MG TABLET PO SCH ×2 (08:28→16:33)
[2022-09-11] MEDS: AMLODIPINE BESYLATE 5 MG TABLET PO SCH (08:29)
[2022-09-11] MEDS: ASPIRIN 81 MG TAB.CHEW PO SCH (08:29)
[2022-09-11] MEDS: MULTIVIT W/MINERALS 1 TAB TABLET PO SCH (08:29)
[2022-09-11] MEDS: LamoTRIgine 25 MG TABLET PO SCH ×2 (08:29→16:33)
[2022-09-11] MEDS: SERTRALINE HCL 50 MG TABLET PO SCH (08:29)
[2022-09-11] MEDS: TAMSULOSIN 0.4 MG CAP.SR.24H PO SCH (08:30)
[2022-09-11] MEDS: GABAPENTIN 100 MG CAPSULE PO SCH ×3 (08:30→16:33)
[2022-09-11] MEDS: MUPIROCIN OINT 2% 22 GM TUBE NS SCH ×2 (08:30→21:21)
[2022-09-11] MEDS: POLYVINYL ALCOHOL 15 ML BOTTLE EACHEYE PRN (08:35)
--- NOTE | 2022-09-11 08:35 | NUR ---
followup urine culture per lab no order.and they cannot send culture since ua done 2 days ago.
--- NOTE | 2022-09-11 08:37 | NUR ---
urine specimen collected and resend by primary RN per ID order.
--- NOTE | 2022-09-11 08:39 | NUR ---
clarified w/ lab why not done reflex culture per lab it was not triggered . made aware.
[2022-09-11] MEDS: LEVOFLOXACIN 500 MG /D5W 100ML 500 MG in PREMIX 1 EA IV SCH (10:25)
[2022-09-11 12:00] VITALS: BP 140/73
[2022-09-11 12:07] LABS: *ANA ANTI-DNA(DS) AB, QN <1 IU/mL (0-9); *ANA ANTI-JO-1 <0.2 AI (0.0-0.9); *ANA ANTICHROMATIN ANTIBODY <0.2 AI (0.0-0.9); *ANA RNP ANTIBODIES <0.2 AI (0.0-0.9); *ANA SJOGREN'S ANTI-SS-A <0.2 AI (0.0-0.9); *ANA SJOGREN'S ANTI-SS-B <0.2 AI (0.0-0.9); *ANAANTI-SCLERODERMA-70 AB <0.2 AI (0.0-0.9); *ANASMITH AB <0.2 AI (0.0-0.9)
[2022-09-11 14:06] LABS: *SPE A/G RATIO 0.4 (0.7-1.7); *SPE ALPHA-1-GLOBULIN 0.4 g/dL (0.0-0.4); *SPE ALPHA-2-GLOBULIN 1.4 g/dL (0.4-1.0); *SPE BETA GLOBULIN 1.2 g/dL (0.7-1.3); *SPE M-SPIKE Not Observed g/dL (Not Observed)
[2022-09-11] MEDS: HYDROCODONE/APAP 10/325MG TABLET PO PRN ×2 (16:57→23:00)
[2022-09-11] MEDS: ENOXAPARIN SODIUM 40 MG/0.4 ML DISP.SYRIN SQ SCH (17:09)
--- NOTE | 2022-09-11 18:49 | NUR ---
RN CLOSING NOTE PATIENT IN BED AWAKE, A/O X 4. PATIENT ON NC 2 LITTERS BUT REMOVED THE NC AND HE IS SATING FINE 98% ON ROOM AIR. PATIENT SAID WILL PUT IT ON ONCE HE NEEDS IT NOT IN ANY FORM OF RESPIRATORY OR CARDIAC DISTRESS. WITH IV ACCESS RIGHT UA, MIDLINE 18G; INTACT, PATENT AND SALINE LOCKED. ALL DUE MEDS GIVEN ORDERED. SAFETY MEASURES MAINTAINED: CALL LIGHT AND TABLE WITHIN REACH, SIDE RAILS UP X 2, BED IN LOWEST LOCKED POSITION. ENDORSED TO PM NURSE FOR LUL.
--- NOTE | 2022-09-11 19:30 | NUR ---
MS RN OPENING NOTES - RECEIVED PATIENT AWAKE IN BED. A/O X4. BREATHING EVEN AND NON-LABORED ON ROOM AIR. NOT IN APPARENT DISTRESS. DENIES PAIN AT THIS TIME. HAS RIGHT UPPER ARM MIDLINE #18G AND SALINE LOCKED. NO S/S OF INFILTRATION NOTED. HAS CONDOM CATHETER DRAINING CLEAR YELLOW URINE TO BAG BY GRAVITY. SAFETY PRECAUTIONS IN PLACE: BED LOCKED AND IN LOW POSITION, SIDE RAILS UP X2, CALL LIGHT WITHIN REACH. WILL CONTINUE PLAN OF CARE.
[2022-09-11 20:00] VITALS: BP 127/73
[2022-09-11] MEDS: ATORVASTATIN 40 MG TABLET PO SCH (21:44)
[2022-09-11] MEDS: INSULIN GLARGINE, 100 UNIT/ML CARTRIDGE SQ SCH (21:44)
[2022-09-11] MEDS: SENNOSIDES 8.6 MG TABLET PO SCH (21:44)
--- NOTE | 2022-09-11 23:05 | NUR ---
PATIENT REQUESTED FOR PRN NORCO 10-325 SINCE HE HAS CHRONIC BILATERAL LOWER EXTREMITY PAIN 05/13. GIVEN AND TOLERATED WELL.
[2022-09-12 04:00] VITALS: BP 122/67
[2022-09-12] MEDS: CLINDAMYCIN 600 MG in IV D5W 50 ML IV SCH ×3 (04:19→21:03)
[2022-09-12] MEDS: BLOOD SUGAR DIAGNOSTIC 1 EACH STRIP IN SCH ×4 (06:53→21:10)
[2022-09-12] MEDS: INSULIN REGULAR, HUMAN 100 UNIT/ML 3 ML VIAL SQ PRN ×4 (06:54→21:09)
--- NOTE | 2022-09-12 07:04 | NUR ---
MS RN CLOSING NOTES - PATIENT SLEEPING INTERMITTENTLY. ABLE TO VERBALIZE NEEDS. NO ACUTE DISTRESS THROUGHOUT THE NIGHT. NO SOB OR NOTED. NO C/O PAIN OR DISCOMFORT AT THIS TIME. AFEBRILE. RIGHT UPPER ARM MIDLINE INTACT, PATENT AND FLUSHING. CLEAR YELLOW URINE NOTED. ALL DUE MEDS GIVEN AND NEEDS ATTENDED. SAFETY PRECAUTIONS MAINTAINED. WILL ENDORSE TO NEXT SHIFT FOR LUL.
[2022-09-12 07:12] LABS: BASOPHILS # (AUTO) 0.1 K/uL (0.0-0.2); BASOPHILS % (AUTO) 0.7 % (0.0-2.0); EOSINOPHILS % (AUTO) 5.1 % (0.0-6.0); HEMATOCRIT 24 % (39-51); HEMOGLOBIN 7.6 g/dL (13.5-17.5); LYMPHOCYTES # (AUTO) 2.5 K/uL (0.8-4.8); LYMPHOCYTES % (AUTO) 31.2 % (20.0-44.0); MEAN CORPUSCULAR HGB CONC 32 g/dl (31.0-36.0); MEAN CORPUSCULAR VOLUME 86 fL (80-96); MONOCYTES # (AUTO) 0.8 K/uL (0.1-1.30); MONOCYTES % (AUTO) 9.7 % (2.0-12.0); NEUTROPHILS # (AUTO) 4.3 K/uL (1.8-8.9); NEUTROPHILS % (AUTO) 53.3 % (43.0-81.0); PLATELET COUNT (AUTO) 389 K/uL (150-450); RED BLOOD CELL COUNT(AUTO) 2.74 MIL/uL (4.5-6.0)
[2022-09-12 07:26] LABS: CALCIUM, SERUM 8.4 mg/dL (8.5-10.1); CREATININE 1.7 mg/dL (0.6-1.3); MAGNESIUM 1.9 mg/dL (1.8-2.4); PHOSPHORUS 4.6 mg/dL (2.5-4.9); POTASSIUM 4.8 mmol/L (3.5-5.1)
[2022-09-12] MEDS: GABAPENTIN 100 MG CAPSULE PO SCH ×3 (08:32→16:40)
[2022-09-12] MEDS: ASPIRIN 81 MG TAB.CHEW PO SCH (08:32)
[2022-09-12] MEDS: SERTRALINE HCL 50 MG TABLET PO SCH (08:32)
[2022-09-12] MEDS: LamoTRIgine 25 MG TABLET PO SCH ×2 (08:33→16:40)
[2022-09-12] MEDS: MULTIVIT W/MINERALS 1 TAB TABLET PO SCH (08:33)
[2022-09-12] MEDS: FOLIC ACID 1 MG TABLET PO SCH (08:33)
[2022-09-12] MEDS: AMLODIPINE BESYLATE 5 MG TABLET PO SCH (08:34)
[2022-09-12] MEDS: CARVEDILOL 12.5 MG TABLET PO SCH ×2 (08:35→16:41)
[2022-09-12] MEDS: MUPIROCIN OINT 2% 22 GM TUBE NS SCH ×2 (08:35→21:00)
[2022-09-12] MEDS: TAMSULOSIN 0.4 MG CAP.SR.24H PO SCH (08:37)
[2022-09-12] MEDS: LEVOFLOXACIN 500 MG /D5W 100ML 500 MG in PREMIX 1 EA IV SCH (09:31)
--- NOTE | 2022-09-12 10:54 | NUR ---
RT NOTE MULTIPLE ATTEMPTS TO REMOVE BIPAP MASK. PATIENT REQUESTS TO LEAVE IT ON STATING THAT HE WAS NOT ABLE TO SLEEP MUCH LAST NIGHT AND IS COMFORTABLE ON IT AT THIS TIME. RAMIREZ CHARGE NURSE AT BESIDE AND AWARE. MONITORING CLOSELY. NO SOB NOTED AT THIS TIME.
[2022-09-12 16:00] VITALS: BP 129/74
[2022-09-12] MEDS: ENOXAPARIN SODIUM 40 MG/0.4 ML DISP.SYRIN SQ SCH (17:04)
--- NOTE | 2022-09-12 17:35 | NUR ---
STOOL SAMPLE COLLECTED FOR OCCULT BLOOD.
--- NOTE | 2022-09-12 18:10 | NUR ---
PATIENT IS RESTING IN BED COMFORTABLY, VITAL SIGNS ARE STABLE, NO SIGNS OF IN DISTRESS, NO COMPLAINT OF PAIN, UNLABORED BREATHING ON 02-3L/MIN, F/C PATENT AND DRAINING WELL, SAFETY MEASURES APPLIED, SIDE RAILS UPX2, BED IN LOW POSITION, CALL LIGHT WITHIN REACH.
[2022-09-12 19:50] LABS: OCCULT BLOOD STOOL NEGATIVE (NEGATIVE)
[2022-09-12] MEDS: SENNOSIDES 8.6 MG TABLET PO SCH (21:03)
[2022-09-12] MEDS: ATORVASTATIN 40 MG TABLET PO SCH (21:03)
[2022-09-12] MEDS: INSULIN GLARGINE, 100 UNIT/ML CARTRIDGE SQ SCH (21:09)
--- NOTE | 2022-09-12 22:00 | NUR ---
RCVD PT ON 2L NC AND PLACED ON NOC BIPAP PER MD'S ORDER. SPO2 97% NO RESPIRATORY DISTRESS NOTED. WILL CONTINUE TO MONITOR T/O SHIFT. Addendum: 09/12/22 at 2225 by CHIQUITA ROMERO RT PLACED ON NOC CPAP 14 PER MD'S ORDER. CHARGE NURSE DHEERAJ NOTIFIED.
[2022-09-13] VITALS: BP 142/79
[2022-09-13] MEDS: HYDROCODONE/APAP 10/325MG TABLET PO PRN ×3 (02:04→18:26)
[2022-09-13] MEDS: CLINDAMYCIN 600 MG in IV D5W 50 ML IV SCH ×3 (04:14→20:55)
--- NOTE | 2022-09-13 06:17 | NUR ---
TAKEN OFF BIPAP AND PLACED PT BACK ON 2L NC. SPO2 97%. YEE NARAYAN NOTIFIED.
[2022-09-13 06:24] LABS: BASOPHILS # (AUTO) 0.1 K/uL (0.0-0.2); BASOPHILS % (AUTO) 0.7 % (0.0-2.0); HEMATOCRIT 23 % (39-51); HEMOGLOBIN 7.4 g/dL (13.5-17.5); LYMPHOCYTES # (AUTO) 2.2 K/uL (0.8-4.8); LYMPHOCYTES % (AUTO) 27.2 % (20.0-44.0); MEAN CORPUSCULAR HGB CONC 33 g/dl (31.0-36.0); MEAN CORPUSCULAR VOLUME 86 fL (80-96); MONOCYTES # (AUTO) 0.7 K/uL (0.1-1.30); MONOCYTES % (AUTO) 8.9 % (2.0-12.0); NEUTROPHILS # (AUTO) 4.8 K/uL (1.8-8.9); NEUTROPHILS % (AUTO) 58.2 % (43.0-81.0); PLATELET COUNT (AUTO) 408 K/uL (150-450); RED BLOOD CELL COUNT(AUTO) 2.63 MIL/uL (4.5-6.0); WHITE BLOOD COUNT (AUTO) 8.3 K/uL (4.3-11.0)
[2022-09-13] MEDS: BLOOD SUGAR DIAGNOSTIC 1 EACH STRIP IN SCH ×4 (06:37→21:10)
[2022-09-13 06:58] LABS: CALCIUM, SERUM 8.5 mg/dL (8.5-10.1); CREATININE 1.5 mg/dL (0.6-1.3); MAGNESIUM 1.9 mg/dL (1.8-2.4); PHOSPHORUS 4.9 mg/dL (2.5-4.9); POTASSIUM 4.8 mmol/L (3.5-5.1)
[2022-09-13 07:07] LABS: COMPLEMENT C3, SERUM 153 mg/dL (82-167); COMPLEMENT C4, SERUM 43 mg/dL (12-38)
--- NOTE | 2022-09-13 07:49 | NUR ---
RN Opening Note Patient AOx4, able to express his concerns. Patient states no concerns, he is aware of situation and status. Will continue to monitor throughout shift and provide care as needed. All safety precautions taken, call light and table within reach, bed at lowest position.
[2022-09-13 08:00] VITALS: BP 119/59
[2022-09-13] MEDS: ASPIRIN 81 MG TAB.CHEW PO SCH (08:55)
[2022-09-13] MEDS: GABAPENTIN 100 MG CAPSULE PO SCH ×3 (08:55→17:27)
[2022-09-13] MEDS: LEVOFLOXACIN (250MG) 250 MG TABLET PO SCH (08:55)
[2022-09-13] MEDS: MULTIVIT W/MINERALS 1 TAB TABLET PO SCH (08:55)
[2022-09-13] MEDS: FOLIC ACID 1 MG TABLET PO SCH (08:55)
[2022-09-13] MEDS: TAMSULOSIN 0.4 MG CAP.SR.24H PO SCH (08:56)
[2022-09-13] MEDS: LamoTRIgine 25 MG TABLET PO SCH ×2 (08:56→17:27)
[2022-09-13] MEDS: VALSARTAN 80 MG TABLET PO SCH (08:56)
[2022-09-13] MEDS: AMLODIPINE BESYLATE 5 MG TABLET PO SCH (08:56)
[2022-09-13] MEDS: SERTRALINE HCL 50 MG TABLET PO SCH (08:56)
[2022-09-13] MEDS: CARVEDILOL 12.5 MG TABLET PO SCH ×2 (08:57→17:00)
[2022-09-13] MEDS: MUPIROCIN OINT 2% 22 GM TUBE NS SCH ×2 (08:57→21:03)
[2022-09-13] MEDS: INSULIN REGULAR, HUMAN 100 UNIT/ML 3 ML VIAL SQ PRN ×2 (13:21→21:11)
[2022-09-13 16:00] VITALS: BP 101/65
--- NOTE | 2022-09-13 18:17 | NUR ---
RN Closing Note Patient AOx4, able to express concerns. Patient made aware of plan of care, verbalized agreement. Will report to night nurse for continuity of care. All safety precautions taken, call light and table within reach, bed at lowest position.
[2022-09-13] MEDS: ENOXAPARIN SODIUM 40 MG/0.4 ML DISP.SYRIN SQ SCH (18:27)
--- NOTE | 2022-09-13 20:00 | NUR ---
RECEIVED PATIENT IN BED, ALERT/ORIENTED X4, ON ROOM AIR, NO DISTRESS, RECEIVED PAIN MEDICATION EARLIER, BOB MIDLINE, DRESSING DRY AND INTACT, CONDOM CATH DRAINING, CALL LIGHT WITHIN REACH.
[2022-09-13] MEDS: INSULIN GLARGINE, 100 UNIT/ML CARTRIDGE SQ SCH (21:12)
[2022-09-13] MEDS: SENNOSIDES 8.6 MG TABLET PO SCH (21:21)
[2022-09-13] MEDS: ATORVASTATIN 40 MG TABLET PO SCH (21:21)
--- NOTE | 2022-09-13 22:00 | NUR ---
PLACED PT ON NOCTURNAL BIPAP. SPO2 97% NO RESPIRATORY DISTRESS NOTED. RN ELENOR NOTIFIED . WILL CONTINUE TO MONITOR T/O SHIFT.
[2022-09-14] VITALS: BP 125/74
--- NOTE | 2022-09-14 | NUR ---
PT REMOVED BIPAP , YEE ELENOR AWARE. PT TOLD ME TO BE BACK @ 1: 30 TO PLACED BIPAP BACK.
--- NOTE | 2022-09-14 01:30 | NUR ---
PLACED PT BACK ON BIPAP, SPO2 98%. RN ELENOR NOTIFIED.
[2022-09-14] MEDS: HYDROCODONE/APAP 10/325MG TABLET PO PRN ×3 (01:34→19:55)
[2022-09-14 04:00] VITALS: BP 111/63
[2022-09-14] MEDS: CLINDAMYCIN 600 MG in IV D5W 50 ML IV SCH (04:17)
--- NOTE | 2022-09-14 06:02 | NUR ---
REFUSED REMOVAL OF NOC CPAP@ THIS TIME. RN ELENOR AT THE BEDSIDE W RT. CHARGE NURSE NOTIFIED.
--- NOTE | 2022-09-14 06:25 | NUR ---
ON CPAP QHS, PER ORDER UNTIL 0600, PATIENT REFUSED REMOVAL OF CPAP, STATING "I'M STILL SLEEPING." RT PUT BACK CPAP, CHARGE NURSE BONITA MADE AWARE.
--- NOTE | 2022-09-14 06:27 | NUR ---
ALERT/AWAKE, 2LPM VIA NC, ALSO STABLE ON ROOM AIR, LEG PAIN, NORCO 10/325 1 TAB WITH ADEQUATE RELIEF, CONDOM CATH, CLEAR AND YELLOW URINE, CONTINUE CLINDAMYCIN, FOR PLACEMENT.
[2022-09-14] MEDS: BLOOD SUGAR DIAGNOSTIC 1 EACH STRIP IN SCH ×4 (06:31→22:46)
[2022-09-14] MEDS: INSULIN REGULAR, HUMAN 100 UNIT/ML 3 ML VIAL SQ PRN ×3 (06:32→22:51)
--- NOTE | 2022-09-14 06:49 | NUR ---
ADDENDUM: RN AND RT ENTERED THE ROOM AT 0600, PATIENT IS AWAKE AND CLAIMING "I'M STILL SLEEPING." REFUSED TO REMOVE CPAP
[2022-09-14 08:00] VITALS: BP 108/61
[2022-09-14] MEDS: TAMSULOSIN 0.4 MG CAP.SR.24H PO SCH (08:15)
[2022-09-14] MEDS: SERTRALINE HCL 50 MG TABLET PO SCH (08:16)
[2022-09-14] MEDS: MULTIVIT W/MINERALS 1 TAB TABLET PO SCH (08:16)
[2022-09-14] MEDS: GABAPENTIN 100 MG CAPSULE PO SCH ×3 (08:16→16:05)
[2022-09-14] MEDS: ASPIRIN 81 MG TAB.CHEW PO SCH (08:16)
[2022-09-14] MEDS: LEVOFLOXACIN (250MG) 250 MG TABLET PO SCH (08:16)
[2022-09-14] MEDS: FOLIC ACID 1 MG TABLET PO SCH (08:17)
[2022-09-14] MEDS: VALSARTAN 80 MG TABLET PO SCH (08:18)
[2022-09-14] MEDS: CARVEDILOL 12.5 MG TABLET PO SCH ×2 (08:18→16:06)
[2022-09-14] MEDS: MUPIROCIN OINT 2% 22 GM TUBE NS SCH (08:18)
[2022-09-14] MEDS: LamoTRIgine 25 MG TABLET PO SCH ×2 (08:21→16:05)
[2022-09-14] MEDS: AMLODIPINE BESYLATE 5 MG TABLET PO SCH (08:21)
[2022-09-14 08:43] LABS: CALCIUM, SERUM 8.4 mg/dL (8.5-10.1); CREATININE 1.7 mg/dL (0.6-1.3); POTASSIUM 4.9 mmol/L (3.5-5.1)
[2022-09-14 08:49] LABS: ALBUMIN 1.6 g/dL (3.4-5.0); BILIRUBIN,TOTAL 0.1 mg/dL (0.2-1.0); MAGNESIUM 1.8 mg/dL (1.8-2.4); PHOSPHORUS 5.4 mg/dL (2.5-4.9); TOTAL PROTEIN, SERUM 7.1 g/dL (6.4-8.2)
[2022-09-14] MEDS: CLINDAMYCIN HCL 150 MG CAPSULE PO SCH ×3 (12:59→23:03)
--- NOTE | 2022-09-14 13:13 | NUR ---
NEW MIDLINE INSERTED ON LEFT UPPER ARM, INTACT/PATENT, SALINE LOCK
[2022-09-14] MEDS ORDERED: CLIN-27 PO (14:05)
[2022-09-14] MEDS ORDERED: VALS80TA31 PO (14:05)
[2022-09-14 16:00] VITALS: BP 118/65
[2022-09-14] MEDS: ENOXAPARIN SODIUM 40 MG/0.4 ML DISP.SYRIN SQ SCH (17:18)
[2022-09-14 20:00] VITALS: BP 121/65
--- NOTE | 2022-09-14 22:00 | NUR ---
MS RN OPENING NOTE PATIENT AWAKE SITTING ON SIDE OF BED, PT ALERT/ORIENTED X 4, PT ABLE TO MAKE NEEDS KNOWN. PATIENT STABLE ON 2 LPM OF 02 VIA NASAL CANNULA, NO S/S OF DISTRESS OR SOB NOTED, BREATHING EVEN AND UNLABORED. CONDOM CATH IN PLACE AND DRAINING URINE BY GRAVITY. STELLA MIDLINE INTACT AND SALINE LOCKED. PATIENT C/O OF 8/10 PAIN AND REQUESTING PAIN MEDICINE, WILL GIVE NORCO 10/325 MG ORDERED. SAFETY MEASURES IN PLACE: CALL LIGHT WITHIN REACH, SIDE RAILS UP X 2, BED LOCKED IN LOWEST POSITION, BED ALARM ON. WILL CONTINUE TO MONITOR PATIENT
[2022-09-14] MEDS: ATORVASTATIN 40 MG TABLET PO SCH (22:46)
[2022-09-14] MEDS: SENNOSIDES 8.6 MG TABLET PO SCH (22:46)
[2022-09-14] MEDS: INSULIN GLARGINE, 100 UNIT/ML CARTRIDGE SQ SCH (22:50)
--- NOTE | 2022-09-15 05:06 | NUR ---
MS RN NOTE PATIENT REFUSED 0400 AM VITALS, STATES HE DOESN'T WANT TO BE WOKEN UP BEFORE 6:30 AM
--- NOTE | 2022-09-15 06:13 | NUR ---
MS RN CLOSING NOTE PATIENT SLEEPING IN BED, PT ALERT/ORIENTED X 4, PT ABLE TO MAKE NEEDS KNOWN. PATIENT WITH CPAP STILL BECAUSE HE DIDN'T WANT TO BE WOKEN UP UNTIL AFTER 6:30 AM PER RT DAYSHIFT WILL REMOVE, NO S/S OF DISTRESS OR SOB NOTED, BREATHING EVEN AND UNLABORED. CONDOM CATH IN PLACE AND DRAINING URINE BY GRAVITY, OUTPUT OF 1600 ML. STELLA MIDLINE INTACT AND SALINE LOCKED. MEDICATIONS GIVEN ORDERED, PT NEEDS MET THROUGHOUT SHIFT. SAFETY MEASURES IN PLACE: CALL LIGHT WITHIN REACH, SIDE RAILS UP X 2, BED LOCKED IN LOWEST POSITION, BED ALARM ON. WILL ENDORSE TO DAYSHIFT RN FOR CONTINUITY OF CARE
[2022-09-15] MEDS: CLINDAMYCIN HCL 150 MG CAPSULE PO SCH ×4 (06:25→23:41)
[2022-09-15] MEDS: HYDROCODONE/APAP 10/325MG TABLET PO PRN ×2 (06:39→23:35)
[2022-09-15] MEDS: BLOOD SUGAR DIAGNOSTIC 1 EACH STRIP IN SCH ×4 (07:22→23:22)
[2022-09-15] MEDS: INSULIN REGULAR, HUMAN 100 UNIT/ML 3 ML VIAL SQ PRN ×3 (07:25→23:26)
--- NOTE | 2022-09-15 07:30 | NUR ---
OPENING NOTE PATIENT AWAKE SITTING ON SIDE OF BED, PT ALERT/ORIENTED X 4, PT ABLE TO MAKE NEEDS KNOWN. PATIENT STABLE ON 2 LPM OF 02 VIA NASAL CANNULA, NO S/S OF DISTRESS OR SOB NOTED, BREATHING EVEN AND UNLABORED. CONDOM CATH IN PLACE AND DRAINING URINE BY GRAVITY. STELLA MIDLINE INTACT AND SALINE LOCKED. PATIENT. SAFETY MEASURES IN PLACE: CALL LIGHT WITHIN REACH, SIDE RAILS UP X 2, BED LOCKED IN LOWEST POSITION, BED ALARM ON. WILL CONTINUE TO MONITOR PATIENT
[2022-09-15] MEDS: ASPIRIN 81 MG TAB.CHEW PO SCH (08:20)
[2022-09-15] MEDS: LEVOFLOXACIN (250MG) 250 MG TABLET PO SCH (08:21)
[2022-09-15] MEDS: SERTRALINE HCL 50 MG TABLET PO SCH (08:21)
[2022-09-15] MEDS: MULTIVIT W/MINERALS 1 TAB TABLET PO SCH (08:21)
[2022-09-15] MEDS: LamoTRIgine 25 MG TABLET PO SCH ×2 (08:22→16:21)
[2022-09-15] MEDS: FOLIC ACID 1 MG TABLET PO SCH (08:22)
[2022-09-15] MEDS: AMLODIPINE BESYLATE 5 MG TABLET PO SCH (08:22)
[2022-09-15] MEDS: CARVEDILOL 12.5 MG TABLET PO SCH ×2 (08:23→16:52)
[2022-09-15] MEDS: VALSARTAN 80 MG TABLET PO SCH (08:26)
[2022-09-15] MEDS: TAMSULOSIN 0.4 MG CAP.SR.24H PO SCH (08:26)
[2022-09-15] MEDS: GABAPENTIN 100 MG CAPSULE PO SCH ×3 (08:28→16:18)
--- NOTE | 2022-09-15 15:00 | NUR ---
CALLED [facility] REGARDING PT IS BEING DISCHARGE TODAY, SPOKE TO SJ, INFORMED HER THAT PT NEEDS BIPAP AT NIGHT, SHE TOLD ME THAT SHE WILL CALL BACK REGARDING BIPAP AVAILABILITY IN THEIR FACILITY.
[2022-09-15 16:00] VITALS: BP 99/51
[2022-09-15] MEDS: ENOXAPARIN SODIUM 40 MG/0.4 ML DISP.SYRIN SQ SCH (17:36)
--- NOTE | 2022-09-15 18:30 | NUR ---
I CALLED [facility] CON[facility]REG[facility] SEVERAL TIMES BUT NO ANSWER AND CAN NOT EVEN LEAVE A MESSAGE. CHARGE NURSE SOON GONZALES AWARE AND [employer]ICE [employer] WORKER INFORMED.
--- NOTE | 2022-09-15 19:04 | NUR ---
PATIENT IS AWAKE,ALERT,ORIENTEDX3, NO SIGNS OF IN DISTRESS, UNLABORED BREATHING ON ROOM AIR, CONDOM CATHETER IS PATENT AND DRAINING WELL. VITAL SIGNS ARE STABLE, BED IN LOW POSITION, SIDE RAILS UPX2, CALL LIGHT WITHIN REACH.
--- NOTE | 2022-09-15 19:30 | NUR ---
PATIENT IS AWAKE, ALERT,ORIENTEDX3, NO SIGNS OF IN DISTRESS, UNLABORED BREATHING ON ROOM AIR, CONDOM CATHETER OUT. PROVIDED FOOD REQUESTED. SAFETY MEASURES IN PLACE. BED IN LOW POSITION, SIDE RAILS UPX2, CALL LIGHT WITHIN REACH. WILL CONTINUE PLAN OF CARE.
--- NOTE | 2022-09-15 23:10 | NUR ---
Endorsed to Charge nurse.
[2022-09-15] MEDS: DOXYCYCLINE HYCLATE (100 MG) 100 MG TABLET PO SCH (23:13)
[2022-09-15] MEDS: SENNOSIDES 8.6 MG TABLET PO SCH (23:13)
[2022-09-15] MEDS: ATORVASTATIN 40 MG TABLET PO SCH (23:13)
[2022-09-15] MEDS: INSULIN GLARGINE, 100 UNIT/ML CARTRIDGE SQ SCH (23:28)
[2022-09-15] MEDS ORDERED: MEROPENEM 500 MG VIAL IV ONE (23:31)
[2022-09-15] MEDS: MEROPENEM 500 MG in IV NS 0.9% 50 ML IV SCH (23:51)
[2022-09-16] MEDS: CLINDAMYCIN HCL 150 MG CAPSULE PO SCH ×2 (05:54→12:31)
[2022-09-16] MEDS: MEROPENEM 500 MG in IV NS 0.9% 50 ML IV SCH (06:00)
--- NOTE | 2022-09-16 06:55 | NUR ---
RN NOTE PATIENT DID NOT GET 0600 MERREM 5000MG D/T RESCHEDULED FOR 0800 BY PHARMACY. MEDICATION NEEDS TO BE DELIVERED.
--- NOTE | 2022-09-16 07:36 | NUR ---
RN CLOSING NOTE RECEIVED PATIENT 2300. A/OX4. ON 2L NC. PATIENT ON/ OFF BIPAP THROUGHOUT NIGHT. ROUGHLY 5HR. MED SURG STATUS. DIONISIO CATH CHANGED, OUTPUT 1300ML. NO BM. REFUSED 0400 VITALS. PRN NORCO GIVEN FOR GENERALIZED PAIN. IV ABX GIVEN. WOUND CARE DONE. PENDING SNF TO CONFIRM BIPAP HAS BEEN DELIVERY FOR DC TODAY.
--- NOTE | 2022-09-16 07:45 | NUR ---
MS RN OPENING NOTE RECEIVED PATIENT IN BED SLEEPING WITH NOCTURNAL BIPAP ON, PT ALERT/ORIENTED X 4, PT ABLE TO MAKE NEEDS KNOWN. NO S/S OF DISTRESS OR SOB NOTED, BREATHING EVEN AND UNLABORED. CONDOM CATH IN PLACE AND DRAINING URINE BY GRAVITY. NOTED WITH LFA PIV, INTACT. SAFETY MEASURES IN PLACE: CALL LIGHT WITHIN REACH, SIDE RAILS UP X 2, BED LOCKED IN LOWEST POSITION, BED ALARM ON. PLAN OF CARE CONTINUE.
[2022-09-16 08:00] VITALS: BP 129/70
[2022-09-16] MEDS ORDERED: MEROPENEM 500 MG in IV NS 0.9% 50 ML IV SCH (08:00)
[2022-09-16] MEDS: BLOOD SUGAR DIAGNOSTIC 1 EACH STRIP IN SCH ×2 (08:11→12:07)
[2022-09-16] MEDS: GABAPENTIN 100 MG CAPSULE PO SCH ×2 (08:52→12:31)
[2022-09-16] MEDS: LamoTRIgine 25 MG TABLET PO SCH (08:52)
[2022-09-16] MEDS: DOXYCYCLINE HYCLATE (100 MG) 100 MG TABLET PO SCH (08:52)
[2022-09-16] MEDS: ASPIRIN 81 MG TAB.CHEW PO SCH (08:52)
[2022-09-16] MEDS: MULTIVIT W/MINERALS 1 TAB TABLET PO SCH (08:52)
[2022-09-16] MEDS: SERTRALINE HCL 50 MG TABLET PO SCH (08:52)
[2022-09-16] MEDS: LEVOFLOXACIN (250MG) 250 MG TABLET PO SCH (08:53)
[2022-09-16] MEDS: FOLIC ACID 1 MG TABLET PO SCH (08:53)
[2022-09-16] MEDS: TAMSULOSIN 0.4 MG CAP.SR.24H PO SCH (08:53)
[2022-09-16] MEDS: VALSARTAN 80 MG TABLET PO SCH (08:53)
[2022-09-16 08:54] VITALS: BP 109/61
[2022-09-16] MEDS: AMLODIPINE BESYLATE 5 MG TABLET PO SCH (08:54)
[2022-09-16] MEDS: CARVEDILOL 12.5 MG TABLET PO SCH (08:54)
[2022-09-16 10:21] LABS: CALCIUM, SERUM 8.4 mg/dL (8.5-10.1); CREATININE 1.7 mg/dL (0.6-1.3); POTASSIUM 4.6 mmol/L (3.5-5.1)
[2022-09-16 10:26] LABS: ALBUMIN 1.6 g/dL (3.4-5.0); BILIRUBIN,TOTAL 0.1 mg/dL (0.2-1.0); TOTAL PROTEIN, SERUM 6.5 g/dL (6.4-8.2)
--- NOTE | 2022-09-16 11:30 | NUR ---
NOLAN DAI CONGREGATE SPOKE TO ANYI RODRIGUEZ, GAVE REPORT FOR DISCHARGE SUMMARY INSTRUCTIONS, CONFIRMED UNDERSTANDING.
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
== END 2022-09-16 14:03 | DRG 133 ==
LOC: ER 13:10 → TELE-TD 18:37 → TELE1 19:08 → MEDSG1 09-10 10:12
PROVIDERS: ADMIT Internal Medicine; ATTEND Nurse Practitioner Acute Care
PROC: 05H933Z Insertion of Infusion Device into Right Brachial Vein, Percutaneous Approach (ICD-10-PCS; principal; 2022-09-07)
PROC: 05HA33Z Insertion of Infusion Device into Left Brachial Vein, Percutaneous Approach (ICD-10-PCS; 2022-09-14)
DX: J96.01 Acute respiratory failure with hypoxia (principal); N17.0 Acute kidney failure with tubular necrosis; J69.0 Pneumonitis due to inhalation of food and vomit; G93.41 Metabolic encephalopathy; I50.33 Acute on chronic diastolic (congestive) heart failure; E11.649 Type 2 diabetes mellitus with hypoglycemia without coma; D63.8 Anemia in other chronic diseases classified elsewhere; E88.09 Other disorders of plasma-protein metabolism, not elsewhere classified; I11.0 Hypertensive heart disease with heart failure; Z20.822 Contact with and (suspected) exposure to COVID-19; Z88.1 Allergy status to other antibiotic agents; Z88.0 Allergy status to penicillin; Z88.8 Allergy status to other drugs, medicaments and biological substances; Z79.4 Long term (current) use of insulin; Z79.82 Long term (current) use of aspirin; Z79.899 Other long term (current) drug therapy; G47.33 Obstructive sleep apnea (adult) (pediatric); N39.0 Urinary tract infection, site not specified; Z89.512 Acquired absence of left leg below knee; E11.51 Type 2 diabetes mellitus with diabetic peripheral angiopathy without gangrene; E11.21 Type 2 diabetes mellitus with diabetic nephropathy; B96.89 Other specified bacterial agents as the cause of diseases classified elsewhere; J15.9 Unspecified bacterial pneumonia; E87.1 Hypo-osmolality and hyponatremia; E11.65 Type 2 diabetes mellitus with hyperglycemia; Y95 Nosocomial condition; E66.01 Morbid (severe) obesity due to excess calories; Z68.37 Body mass index [BMI] 37.0-37.9, adult; R76.8 Other specified abnormal immunological findings in serum; R80.9 Proteinuria, unspecified
CPT/HCPCS: 36410; 36415; 71045-TC; 76770-TC; 80048-TC; 80053-TC; 80076-TC; 81001; 82272-TC; 82570-TC; 82728-TC; 82962-TC; 83540-TC; 83735-TC; 83880; 84100-TC; 84155; 84155-TC; 84165; 84300-TC; 84484-TC; 85025-TC; 85652-TC; 85730-TC; 86225; 86235; 86706; 86803; 87081-TC; 87086-TC; 93307-TC; 94799-TC; A4216; A4349; A6403; C9803; G0378; J1650; J1815; J1956; J2185; J2405; J3490; J7030; J7050; J7060